=== PATIENT | male | born 1985 | race African-American/Black ===

== ENCOUNTER 2024-01-14 14:41 | Emergency (ER) | payer MEDICAID ==
[~2024-01-14] VITALS: Ht 175.3 cm; Wt 68.0 kg
[2024-01-14 14:54] VITALS: O2SAT 98
[2024-01-14] MEDS ORDERED: SULF1TAB48 MT (18:18)
[2024-01-14] MEDS ORDERED: CEPH500T MT (18:18)
[2024-01-14] MEDS: TETANUS, DIPHTHERIA, PERTUSSIS VAC/PF 0.5ML (>10YR OLD) IM ONE (18:41)
[2024-01-14] MEDS: LIDOCAINE HCL/PF 1% 10 MG/ML 5ML VIAL INFIL ONE ×2 (18:42)
[2024-01-14] MEDS: BACITRACIN ZINC OINT UDPKT TOP ONE (18:42)
[2024-01-14] MEDS: ACETAMINOPHEN 325MG TABLET PO ONE (19:30)
[2024-01-14 19:45] VITALS: BP 121/75; PULSE 82; RESP 20; TEMP 36.89184; O2SAT 100
== END 2024-01-14 19:45 | disposition home or self-care (01) ==
LOC: ER 14:41
DX: L73.9 Follicular disorder, unspecified (principal); J45.909 Unspecified asthma, uncomplicated; Z91.013 Allergy to seafood
CPT/HCPCS: 99284; 10061; J3490